=== PATIENT | female | born 1995 | race Caucasian/White ===

== ENCOUNTER 2016-09-04 06:20 | Emergency (ER) | payer MEDICAID ==
[~2016-09-04] VITALS: Wt 61.4 kg
[~2016-09-04 06:20] MED LIST: DICY10CA60 PO; IBUP-1542 PO; ONDA4TAB35 PO
--- NOTE | 2016-09-04 06:57 | ERD ---
ER Documentation Chief Complaint Date/Time DATE: 09/04/16 Chief Complaint Bilateral eye irritation, itching, increased tearing HPI The patient is a 21-year-old female who presents the Emergency Department with complaint of bilateral eye irritation for the past 2 days. The patient describes bilateral ocular pruritus, conjunctival redness, burning, with increased lacrimation over the past two days. The patient denies any known new environmental exposures or history of allergies. Denies any pain with eye movement. Denies any ocular purulent discharge, though does admit to increased lacrimation. Denies eye pain. Denies fevers, sweats, chills, nausea or vomiting. Admits to mild rhinorrhea, but otherwise denies cough, sore throat, ear pain, neck pain, neck stiffness or new rashes. Denies any foreign body sensation or insertion into the eye. Denies contact lens use. Denies photophobia. Denies any contacts with similar symptoms. ROS All systems reviewed and are negative except as per history of present illness. Medications Home Meds Active Scripts Cetirizine Hcl* (Zyrtec*) 10 Mg Capsule, 10 MG PO DAILY, #10 TAB.CHEW Prov:AMARI DAY PA-C 09/04/16 Naphazoline Hcl/Phenir Mal (Naphcon-A Eye Drops) 15 Ml Drops, 1-2 DROP OPHTHALMIC QID for allergic conjunctivitis for 7 Days, #1 BOTTLE Prov:AMARI DAY PA-C 09/04/16 Ibuprofen* (Motrin*) 600 Mg Tab, 600 MG PO Q6H Y for PAIN AND OR ELEVATED TEMP, #30 TAB Prov:KATERINA ESCOBAR NP 09/26/15 Ondansetron Hcl* (Zofran* ODT) 4 mg -ODT Tab.disper, 4 MG PO Q8 Y for NAUSEA AND /OR VOMITING, #30 TAB Prov:KATERINA ESCOBAR NP 09/26/15 Dicyclomine Hcl* (Bentyl*) 10 Mg Capsule, 20 MG PO QID, #30 CAP Prov:KATERINA ESCOBAR NP 09/26/15 Reported Medications [none] Unknown Strength No Conflict Check 09/25/15 Allergies Allergies: Coded Allergies: No Known Allergy (Unverified , 09/04/16) PMhx/Soc Medical and Surgical Hx: pt denies Medical Hx, pt denies Surgical Hx History of Surgery: No Anesthesia Reaction: No Hx Neurological Disorder: No Hx Respiratory Disorders: No Hx Cardiac Disorders: No Hx Psychiatric Problems: No Hx Miscellaneous Medical Probl: No Hx Alcohol Use: No Hx Substance Use: No Hx Tobacco Use: No Smoking Status: Never smoker Physical Exam Vitals Vital Signs Date Time Temp Pulse Resp B/P Pulse Ox O2 Delivery O2 Flow Rate FiO2 09/04/16 06:30 98.0 70 20 103/67 100 Physical Exam GENERAL: Well-developed, well-nourished, female, in no acute distress. Nontoxic. Well-appearing. HEENT: Head is normocephalic, atraumatic. Hyperemia, chemosis and mild tearing bilaterally. Mild bilateral eyelid edema. No purulent discharge. No crusting of the eyelids. No pain with eye movement. No proptosis. No periorbital erythema/ swelling. No crepitus. No scleral icterus. Pupils equal, round and reactive to light. Extraocular movements intact. OD 20/30, OS 20/30, OU 20/25. No foreign bodies on eyelid eversion. No hordeolum or chalazion noted. Moist mucous membranes. NECK: Supple. Full range of motion. No nuchal rigidity. No meningismus. RESPIRATORY: Lungs are clear to auscultation bilaterally. Equal breath sounds. Normal expiratory effort. CARDIOVASCULAR: Regular rate and rhythm. S1 and S2 normal. GASTROINTESTINAL: Abdomen is soft, non-tender, and non-distended. BACK: No midline tenderness. EXTREMITIES: No clubbing, cyanosis, or edema. Normal skin perfusion. Moving all extremities. Muscle tone is normal. No focal swelling or erythema. NEUROLOGIC: The patient is alert, awake, and oriented x 3. INTEGUMENT: Skin is intact. Warm and dry. No rashes, no petechiae present. Normal turgor. PSYCHIATRIC: Cooperative. Appropriate. Procedures/MDM This is a 21-year-old female presenting to the Emergency Department with complaint of bilateral eye itching, irritation and increased lacrimation for the past two days. On physical examination, the patient had hyperemia, increased tearing, conjunctival edema/chemosis and mild eyelid edema. Otherwise , she had no pain with eye movement, no proptosis, no scleral icterus. No periorbital edema or erythema were noted. No foreign bodies seen on eyelid eversion. The differential diagnosis includes, but is not limited to, viral infection, viral conjunctivitis, bacterial conjunctivitis, allergic conjunctivitis, reactive arthritis, keratoconjunctivitis sicca, chemical irritant, uveitis, glaucoma, foreign body, corneal abrasion/ulceration, keratitis, scleritis, episcleritis, dacryocystitis, trauma, subconjunctival hemorrhage, hordeolum, chalazion, blepharitis. There is no current evidence of intra-ocular trauma. No clinical findings of periorbital/orbital cellulitis. After rest, the patient reports no new complaints. Upon my review and interpretation of the patient's presentation, I believe the patient's symptoms are most consistent with acute conjunctivitis, likely allergic in origin. At this time, the patient is in stable condition and therefore can be discharged home with a prescription for Naphcon-A drops, Cetirizine, and given strict return precautions for signs of deteriorating or worsening condition. The patient is instructed to follow up with her primary medical provider and/or automotive technician instructor within 1-2 days for reevaluation and further management or return to the ER sooner for any persistent, new or worsening symptoms. I shared my medical decision making and plan with the patient at length and in great detail, and she verbally understands and agrees with the plan for further observation and care as an outpatient. At the time of discharge all questions were answered. Departure Diagnosis: Primary Impression: Allergic conjunctivitis Laterality: bilateral Qualified Code: H10.13 - Allergic conjunctivitis, bilateral Condition: Stable Patient Instructions: Conjunctivitis, Allergic Referrals: [facility] Additional Instructions: Call your primary care doctor and/or automotive technician instructor TOMORROW for an appointment during the next 1-2 days.See the doctor sooner or return here if your condition worsens before your appointment time. AMARI DAY PA-C Sep 04, 2016 06:57
[2016-09-04] MEDS ORDERED: NAPH15DR OPHTHALMIC (06:59)
[2016-09-04] MEDS ORDERED: CETI10CA PO (07:00)
== END 2016-09-04 07:23 | disposition home or self-care (01) ==
LOC: FTE 06:20
DX: H10.13 Acute atopic conjunctivitis, bilateral (principal)
CPT/HCPCS: 99283

== ENCOUNTER 2018-09-04 17:28 | Emergency (ER) | payer MEDICAID ==
[~2018-09-04] VITALS: Ht 162.6 cm; Wt 60.7 kg
[~2018-09-04 17:28] MED LIST changes: +CETI10CA PO; +DICY10CA40 PO; -DICY10CA60 PO; +NAPH15DR OPHTHALMIC
[2018-09-04 17:35] VITALS: BP 114/57; RESP 16; Ht 162.6 cm; Wt 60.7 kg
[2018-09-04] MEDS ORDERED: IBUP-1542 PO (19:34)
[2018-09-04] MEDS ORDERED: D-ME473S2 PO (19:34)
--- NOTE | 2018-09-04 19:36 | ERD ---
ER Documentation Chief Complaint Chief Complaint ST, fever, and runny nose today HPI 23 oh female presents with sore throat, congestion, cough starting today. She denies vomiting, abdominal pain, chest pain, measured fevers. She has body aches as well. ROS All systems reviewed and are negative except as per history of present illness. Medications Home Meds Active Scripts Dextromethorphan Hb-Promethazine Hcl* (Promethazine DM* Syrup) 473 Ml Syrup, 5 ML PO Q6 PRN for COUGH for 5 Days, ML Prov:JONATHAN FLOYD MD 09/04/18 Ibuprofen* (Motrin*) 600 Mg Tab, 600 MG PO Q6, #15 TAB Prov:JONATHAN FLOYD MD 09/04/18 Cetirizine Hcl* (Zyrtec*) 10 Mg Capsule, 10 MG PO DAILY, #10 TAB.CHEW Prov:AMARI DAY PA-C 09/04/16 Naphazoline Hcl/Phenir Mal (Naphcon-A Eye Drops) 15 Ml Drops, 1-2 DROP OPHTHALMIC QID for allergic conjunctivitis for 7 Days, #1 BOTTLE Prov:AMARI DAY PA-C 09/04/16 Ibuprofen* (Motrin*) 600 Mg Tab, 600 MG PO Q6H PRN for PAIN AND OR ELEVATED TEMP, #30 TAB Prov:KATERINA ESCOBAR NP 09/26/15 Ondansetron Hcl* (Zofran* ODT) 4 mg -ODT Tab.disper, 4 MG PO Q8 PRN for NAUSEA AND/OR VOMITING, #30 TAB Prov:KATERINA ESCOBAR NP 09/26/15 Dicyclomine HCl (Dicyclomine HCl) 10 Mg Capsule, 20 MG PO QID, #30 CAP Prov:KATERINA ESCOBAR NP 09/26/15 Reported Medications [none] Unknown Strength No Conflict Check 09/25/15 Allergies Allergies: Coded Allergies: No Known Allergy (Unverified , 09/04/16) PMhx/Soc Medical and Surgical Hx: pt denies Medical Hx, pt denies Surgical Hx History of Surgery: No Anesthesia Reaction: No Hx Neurological Disorder: No Hx Respiratory Disorders: No Hx Cardiac Disorders: No Hx Psychiatric Problems: No Hx Miscellaneous Medical Probl: No Hx Alcohol Use: No Hx Substance Use: No Hx Tobacco Use: No Smoking Status: Never smoker FmHx Family History: No diabetes, No coronary disease, No other Physical Exam Vitals Vital Signs Date Temp Pulse Resp B/P (MAP) Pulse Ox O2 O2 Flow FiO2 Time Delivery Rate 09/04/18 98.3 79 16 114/57 100 17:35 (76) Physical Exam Const: No acute distress Head: Atraumatic Eyes: Normal Conjunctiva ENT: Normal External Ears, Nose and Mouth. TMs and oropharynx normal. Neck: Full range of motion. No meningismus. Resp: Clear to auscultation bilaterally Cardio: Regular rate and rhythm, no murmurs Abd: Soft, non tender, non distended. Normal bowel sounds Skin: No petechiae or rashes Back: No midline or flank tenderness Ext: No cyanosis, or edema Neur: Awake and alert Psych: Normal Mood and Affect Results 24 hrs Current Medications Medications Dose Sig/Shaun Start Time Status Last (Trade) Ordered Route PRN Stop Time Admin Dose Reason Admin Ibuprofen 600 mg ONCE ONCE 09/04/18 (Motrin) PO 20:00 09/04/18 20:01 Procedures/MDM Patient presents with body aches and URI symptoms starting today. She has essentially normal exam. I suspect she has a viral URI. We will treat with promethazine DM, ibuprofen, recommendations for primary care follow-up and return precautions. The patient was stable with no new complaints during the ER course. Clinically, there is no current evidence to suggest meningitis, sepsis, acute abdomen, pneumonia, stroke, acute coronary syndrome, pulmonary embolism, aortic dissection or any other emergent condition appearing to require further evaluation or hospitalization. Patient counseled regarding my diagnostic impression and care plan. Prior to discharge all questions answered. Pt agrees with treatment plan and understands strict return precautions. Pt is instructed to follow up with primary care provider within 24-48 hours. Precautionary instructions provided including instructions to return to the ER if not improving or for any worsening or changing symptoms or concerns. Disclaimer: Inadvertent spelling and grammatical errors are likely due to EHR/dictation software use and do not reflect on the overall quality of patient care. Also, please note that the electronic time recorded on this note does not necessarily reflect the actual time of the patient encounter. Departure Diagnosis: Primary Impression: Sore throat Condition: Stable Patient Instructions: Uri, Viral, No Abx (Adult) Referrals: NO PRIMARY,CARE PHYSICIAN (PCP) Additional Instructions: Likely viral illness should resolve the next 3 to 5 days. Recheck for new or worsening symptoms with primary care doctor. JONATHAN FLOYD MD Sep 04, 2018 19:36
[2018-09-04 19:51] VITALS: PULSE 87
[2018-09-04] MEDS ORDERED: IBUPROFEN 600 MG TAB PO ONE (20:00)
== END 2018-09-04 19:53 | disposition home or self-care (01) ==
LOC: FTE 17:28
DX: J02.9 Acute pharyngitis, unspecified (principal)
CPT/HCPCS: 81025; Z7502; Z7610; 99283